=== PATIENT | female | born 2000 | race Caucasian/White ===

== ENCOUNTER 2023-07-25 20:23 | Outpatient (REF) | payer BC, SELFPAY ==
[2023-07-30 09:10] LABS: Age Gdln ACOG Testing Note (.); Pap IG (Image Guided) Note (.)
== END 2023-07-25 20:24 | disposition home or self-care (01) ==
LOC: LAB 20:23
PROVIDERS: PCP Family Medicine; Visit Provider Nurse Practitioner
DX: Z01.419 Encounter for gynecological examination (general) (routine) without abnormal findings (principal); Z20.2 Contact with and (suspected) exposure to infections with a predominantly sexual mode of transmission
CPT/HCPCS: 87491; 87591; 88175

== ENCOUNTER 2023-12-26 00:41 | Emergency (ER) | payer SELFPAY ==
[2023-12-26 00:45] VITALS: BP 153/89; PULSE 109; TEMP 36.3; O2SAT 99; BMI 25.0
--- OUTSIDE RECORDS SUMMARY | 2023-12-26 01:01 | XMS_ITS | CCD ---
Author Organization [facility]form[facility] access hospital Partnership [facility] Care Team Providers Care Applied Exercise Physiologist Name Role Phone Unavailable Primary Care Provider UnavailEdwin Montgomery Admitting Unavaila Edwin Johnson Attending Unavaila rich NON STAFF Primary Care Unavailable Edwin Ponce Unavailable IZABELLA MICHEL Referring Unavailable SEEMA OLVERA Attending Unavailable IZABELLA MICHEL Primary Care Unavailable IZABELLA MICHEL Attending Unavailable IZABELLA MICHEL Attending Unavailable Allergies Allergy Classification Reported Allergen(s) Allergy Type Date of Onset Reaction(s) Facility (1 source) Penicillin Drug Allergy Unknown [facility] [employer] Other Medications Current Medications Medication Drug Class(es) Dates Sig (Normalized) Sig (Original) naproxen 500 mg oral tablet (1 source) Nonsteroidal Anti-inflammatory Drug Start: 08-20-2022 take 1 tablet by mouth every twelve hours Naproxen 500 MG 1 tablet with food or milk Orally every 12 hrs for 10 days Aug, Active Thumb Spica Thumb Spica (1 source) Start: 08-20-2022 Thumb Spica Thumb Spica Aug, Active Problems Problem Classification Problem Date Documented Date Episodic/Chronic Immunizations and screening for infectious disease (2 sources) Contact with and (suspected) exposure to infections with a predominantly sexual mode of transmission; Translations: [Contact with and (suspected) exposure to infections with a predominantly sexual mode of transmission] Onset: 07-23-2023 Episodic Nonspecific chest pain (1 source) Chest pain, unspecified; Translations: [Chest pain, unspecified] Onset: 08-12-2023 Episodic Other connective tissue disease (1 source) Pain in left hand Episodic Other non-traumatic joint disorders (1 source) Pain in unspecified wrist Episodic Other upper respiratory infections (1 source) Acute pharyngitis, unspecified; Translations: [Acute pharyngitis, unspecified] Onset: 08-12-2023 Episodic Sprains and strains (1 source) Unspecified sprain of left wrist, initial encounter Episodic Unclassified (1 source) Pain in left hand; Translations: [Pain in left hand] Onset: 08-20-2022 Results Test Name Value Interpretation Reference Range Facility Basic Metabolic Profon 08-11 Anion gap [Moles/Vol] 11 mmol/L Normal - [facility] Comment on above: Performed By: #### T ROPI, BMP, DIME, CDP #### [facility] [address] [place] [address] [employer] Operator: Jeffrey Long MD BUN/CRE Ratio 15 Normal 9- [facility] Comment on above: Performed By: #### T ARIA, BMP, DIME, CDP #### [facility] [address] [place], [place] [id number] [employer]: Jeffrey Long MD Calcium [Mass/Vol] 9.0 mg/dL Normal 8.6-10.4 [facility] Comment on above: Performed By: #### T ARIA, BMP, DIME, CDP #### [facility] [address] [place], [place] [id number] [employer] Operator: Jeffrey Long MD Chloride [Moles/Vol] 99 mmol/L Normal 98-107 [facility] Comment on above: Performed By: #### T ROPNiki, BMP, DIME, CDP #### [facility] [address] [place], [place] [id number] [employer] Operator: Jeffrey Long MD CO2 [Moles/Vol] 25 mmol/L Normal 20-31 [facility] Comment on above: Performed By: #### T ROPI, BMP, DIME, CDP #### [facility] [address] [place] [address] [employer] Operator: Jeffrey Long MD Creatinine [Mass/Vol] 0.6 mg/dL Normal 0.5-0.9 [facility] Comment on above: Performed By: #### T GO KNAPP DIME, CDP #### [facility] [address] [place] [address] [employer] Operator: Jeffrey Long MD GFR/1.73 sq M.predicted among non-blacks MDRD (S/P/Bld) [Vol rate/Area] mL/min/{1.73_m2} Normal >60 [facility] Comment on above: Result Comment: These results are not intended for use in patients <18 years of age. eGFR results are calculated without a race factor using the 2020 CKD-EPI equation. Careful clinical correlation is recommended, particularly when comparing to results calculated using previous equations. The CKD-EPI equation is less accurate in patients with extremes of muscle mass, extra-renal metabolism of creatine, excessive creatine ingestion, or following therapy that affects renal tubular secretion. Performed By: #### T GO KNAPP DIME, CDP #### [facility] [address] [place] [address] [employer]: Jeffrey Long MD Glucose [Mass/Vol] 101 mg/dL High 70-99 [facility] Comment on above: Performed By: #### T GO KNAPP DIME, CDP #### [address] [place] [address] [employer]: Jeffrey Long MD Potassium [Moles/Vol] 3.6 mmol/L Low 3.7-5.3 [facility] Comment on above: Performed By: #### T GO KNAPP DIME, CDP #### [facility] [address] [place] [address] [employer] Operator: Jeffrey Long MD Sodium [Moles/Vol] 135 mmol/L Normal 135-144 [facility] Comment on above: Performed By: #### T GO KNAPP DIME, CDP #### [facility] [address] [place], [place] [address] [employer] Operator: Jeffrey Long MD Urea nitrogen [Mass/Vol] 9 mg/dL Normal 6-20 [facility] Comment on above: Performed By: #### T ARIA, GO, DIME, CDP #### [address] [place] [address] [employer]: Jeffrey Long MD CBC with Diffon 08-12-2023 Abs. Basophil 0.03 k/uL Normal 0.00-0.20 [facility] Comment on above: Performed By: #### T ROPNiki, BMP, DIME, CDP #### [address] [place] [address] [employer]: Jeffrey Long MD Abs.Imm.Granulocyte <0.03 Normal 0.00-0.30 [facility] Comment on above: Performed By: #### T ARIA, BMP, DIME, CDP #### [address] [place], [place] [address] [employer] Operator: Jeffrey Long MD Abs.Neutrophil (Seg) 3.25 k/uL Normal 1.80-8.00 [facility] Comment on above: Performed By: #### T ARIA, BMP, DIME, CDP #### [address] [place] [address] [employer]: Jeffrey Long MD Basophils/100 WBC (Bld) 0 % Normal 0-2 [facility] Comment on above: Performed By: #### T ARIA, BMP, DIME, CDP #### [address] [place], [place] [address] [employer] Operator: Jeffrey Long MD Eosinophils (Bld) [#/Vol] 0.10 10*3/uL Normal 0.00-0.44 [facility] Comment on above: Performed By: #### T ROPI, BMP, DIME, CDP #### [address] [place], [place] [id number] [employer]: Jeffrey Long MD Eosinophils/100 WBC (Bld) 2 % Normal 1-4 [facility] Comment on above: Performed By: #### T ROPNiki, BMP, DIME, CDP #### [address] [place], [facility]83 [employer]: Jeffrey Long MD Erythrocyte distribution width (RBC) [Ratio] 12.8 % Normal 11.8-14.4 [facility] Comment on above: Performed By: #### T ARIA, BMP, DIME, CDP #### [address] [place] [id number] [employer] Operator: Jeffrey Long MD Hematocrit (Bld) [Volume fraction] 40.5 % Normal 36.3-47.1 [facility] Comment on above: Performed By: #### T ARIA, BMP, DIME, CDP #### [address] [place], [facility]83 [employer]: Jeffrey Long MD Hemoglobin (Bld) [Mass/Vol] 13.6 g/dL Normal 11.9-15.1 [facility] Comment on above: Performed By: #### T ARIA, BMP, DIME, CDP #### [address] [place], [place] [address] [employer] Operator: Jeffrey Long MD Immature granulocytes/100 WBC (Bld) 0 % Normal 0 [facility] Comment on above: Performed By: #### T ARIA, BMP, DIME, CDP #### [address] [place] [id number] [employer] Operator: Jeffrey Long MD Lymphocytes (Bld) [#/Vol] 2.66 10*3/uL Normal 1.20-5.20 [facility] Comment on above: Performed By: #### T ROPI, BMP, DIME, CDP #### [facility] [address] [place] [address] [employer]: Jeffrey Long MD Lymphocytes/100 WBC (Bld) 40 % Normal 25-45 [facility] Comment on above: Performed By: #### T GO KNAPP, DIME, CDP #### [facility] [address] [place], [place] [id number] [employer] Operator: Jeffrey Long MD MCH (RBC) [Entitic mass] 30.3 pg Normal 25.2-33.5 [facility] Comment on above: Performed By: #### T GO KNAPP, DIME, CDP #### [facility] [address] [place], [place] [id number] [employer] Operator: Jeffrey Long MD MCHC (RBC) [Mass/Vol] 33.6 g/dL Normal 28.4-34.8 [facility] Comment on above: Performed By: #### T GO KNAPP, DIME, CDP #### [facility] [address] [place], [place] [address] [employer] Operator: Jeffrey Long MD MCV (RBC) [Entitic vol] 90.2 fL Normal 82.6-102.9 [facility] Comment on above: Performed By: #### T GO KNAPP, DIME, CDP #### [address] [place], [place] [address] [employer] Operator: Jeffery Long MD Monocytes (Bld) [#/Vol] 0.69 10*3/uL Normal 0.10-1.40 [facility] Comment on above: Performed By: #### T GO KNAPP, DIME, CDP #### [facility] [address] [place], [place] [address] [employer]: Jeffrey Long MD Monocytes/100 WBC (Bld) 10 % High 2-8 [facility] Comment on above: Performed By: #### T GO KNAPP, DIME, CDP #### [facility] [address] [place], [place] [address] [employer] Operator: Jeffrey Long MD Neutrophil (Seg) 48 % Normal 34-64 [facility] Comment on above: Performed By: #### T ROPI, BMP, DIME, CDP #### [facility] [address] [place], [place] [address] [employer]: Jeffrey Long MD NRBC Automated 0.0 per 100 WBC Normal 0.0 [facility] Comment on above: Performed By: #### T ROPNiki, BMP, DIME, CDP #### [facility] [address] [place], [place] [address] [employer] Operator: Jeffrey Long MD Platelet mean volume (Bld) [Entitic vol] 9.2 fL Normal 8.1-13.5 [facility] Comment on above: Performed By: #### T ROPNiki, BMP, DIME, CDP #### [address] [place], [place] [address] [employer] Operator: Jeffrey Long MD Platelets (Bld) [#/Vol] 330 10*3/uL Normal 138-453 [facility] Comment on above: Performed By: #### T ARIA, BMP, DIME, CDP #### [address] [place], [facility]83 [employer]: Jeffrey Long MD RBC (Bld) [#/Vol] 4.49 10*6/uL Normal 3.95-5.11 [facility] Comment on above: Performed By: #### T ARIA, BMP, DIME, CDP #### [facility] [address] [place], [place] [address] [employer] Operator: Jeffrey Long MD WBC (Bld) [#/Vol] 6.7 10*3/uL Normal 4.5-13.5 [facility] Comment on above: Performed By: #### T GO KNAPP DIME, CDP #### [facility] [address] [place] [address] [employer] Operator: Jeffrey Long MD D-Dimer Teston 08-12-2023 D-Dimer Test 0.54 ug/mL FEU Normal 0.00-0.59 [facility] Comment on above: Result Comment: When combined with a low clinical probability, a D dimer value of <0.50 ug/mL FEU is considered negative for DVT and PE (negative predictive value of 98%, sensitivity of 97%). If this test is not being used to help rule out DVT and PE, then the following reference range should be utilized: 0.00 - 0.59 ug/mL FEU. The D-Dimer assay is intended for use as an aid in the diagnosis of venous thromboembolism (DVT and PE) and the results should be interpreted in conjunction with the patient's medical history, clinical presentation, and other findings. Elevated levels of D-dimer activity can be seen in any state of coagulation activation and is not recommended in patients with therapeutic dose anticoagulant therapy for >24 hours, fibrinolytic therapy within the previous 7 days, trauma or surgery within the previous 4 weeks, disseminated malignancies, aortic aneurysm, sepsis, severe infections, pneumonia, severe skin infections, liver cirrhosis, advanced age, coronary disease, diabetes, and . A very low percentage of patients with DVT may yield D-dimer results below the cutoff of 0.5 ug/mL FEU. This is known to be more prevalent in patients with distal DVT. Performed By: #### T GO KNAPP DIME, CDP #### [facility] [address] [place] [address] [employer] Operator: Jeffrey Long MD HCG Screen, Bloodon 08-12-19 HCG Screen, Blood Negative Normal NEG [facility] Comment on above: Result Comment: Spec imens with hCG levels near the threshold of the test (25 mIU/mL) may give a negative or indeterminate result. In such cases, another test should be performed with a new specimen in 48-72 hours. If early is suspected clinically in this setting, correlation with quantitative serum b-hCG level is suggested. [facility] has confirmed the use of plasma for this test. This has not been cleared or approved by the U.S. Food and Drug Administration. The FDA has determined that such clearance is not necessary. Performed By: #### H CG #### [facility] [address] [place] [address] [employer] Operator: Jeffrey Long MD Troponinon 08-12-2023 Troponin, High Sens <6 Normal 0-14 [facility] Comment on above: Result Comment: High Sensitivity Troponin values cannot be compared with other Troponin methodologies. Performed By: #### T ROPI, BMP, DIME, CDP #### [facility] [address] [place] [address] [employer] Operator: Jeffrey Long MD XR CHEST (2 VW)on 08-12-2023 XR CHEST (2 VW) EXAMINATION: TWO XRAY VIEWS OF THE CHEST 08/12/2023 5:10 am COMPARISON: None. HISTORY: ORDERING SYSTEM PROVIDED HISTORY: shortness of breath, and R sided chest pain TECHNOLOGIST PROVIDED HISTORY: shortness of breath, and R sided chest pain FINDINGS: The cardiomediastinal silhouette is normal in size. The lungs are clear. No pleural effusion or pneumothorax is present. IMPRESSION: No acute cardiopulmonary process. Interpreted by: Jeffrey Wren MD Signed by: Jeffrey Wren MD 08/12/23 Final result Normal [facility] Chlamydia/GC DNA, Uron 07-23 Chlamydia Probe, Ur Negative Normal NEG [facility] Comment on above: Result Comment: CHLA MYDIA TRACHOMATIS DNA not detected by nucleic acid amplification. This test is intended for medical purposes only and is not valid for the evaluation of suspected sexual abuse or for other forensic purposes. In certain contexts, culture may be required to meet applicable laws and regulations for diagnosis of C. trachomatis and N. gonorrhoeae infections. Per 2014 CDC recommendations, this test does not include confirmation of positive results by an alternative nucleic acid target. Performed By: #### T REP, PHEP, UCGP, HIVCMB #### [place] [address] [place] [address] [employer] Operator: Jomar Barbour MD Gonorrhea Probe, Ur Negative Normal NEG [facility] Comment on above: Result Comment: NEIS SERIA GONORRHOEAE DNA not detected by nucleic acid amplification. This test is intended for medical purposes only and is not valid for the evaluation of suspected sexual abuse or for other forensic purposes. In certain contexts, culture may be required to meet applicable laws and regulations for diagnosis of C. trachomatis and N. gonorrhoeae infections. Per 2014 CDC recommendations, this test does not include confirmation of positive results by an alternative nucleic acid target. Performed By: #### T REP, PHEP, UCGP, HIVCMB #### [facility] [address] [place] [address] [employer] Operator: Jomar Barbour MD HIV Ag/Abon 07-23-2023 HIV Ag/Ab Non-Reactive Normal [facility] Comment on above: Result Comment: No l aboratory evidence of HIV infection. If acute HIV infection is suspected, consider testing for HIV-1 RNA. Performed By: #### T REP, PHEP, UCGP, HIVCMB #### [facility] [address] [place] [address] [employer] Operator: Jomar Barbour MD Hepatitis Acute [facility] 07-22 Hep A Ab,IgM Non-Reactive Normal [facility] Comment on above: Performed By: #### T REP, PHEP, UCGP, HIVCMB #### [facility] [address] [place] [address] [employer] Operator: Jomar Barbour MD Hep B Core Ab,IgM Non-Reactive Normal [facility] Comment on above: Performed By: #### T REP, PHEP, UCGP, HIVCMB #### [facility] [address] [place] [address] [employer] Operator: Jomar Barbour MD Hep B Surf Ag Non-Reactive Normal [facility] Comment on above: Performed By: #### T REP, PHEP, UCGP, HIVCMB #### [facility] [address] [place] [id number] [employer] Operator: Jomar Barbour MD Hep C Ab Non-Reactive Normal NR [facility] Comment on above: Result Comment: The hepatitis C procedure used in our laboratory is a Chemiluminescent test specific for three recombinant HCV antigens. A negative anti-HCV result indicates that the antibodies to hepatitis C virus are not present at this time. Individuals with reactive anti-HCV should be considered infected and infectious until proven otherwise. Confirmation of all equivocal or reactive results is recommended by ordering HCV RNA by PCR. Performed By: #### T REP, PHEP, UCGP, HIVCMB #### [email or web address] [address] [place], [place] [id number] [employer] Operator: Jomar Barbour MD T.pallidum Ab Screenon 07-22 T.pallidum Ab Screen Non-Reactive Normal NR [facility] Comment on above: Result Comment: T. pallidum antibodies are not detected. There is no serological evidence of infection with T. pallidum (early primary syphilis cannot be excluded). Retest in 2-4 weeks if syphilis is clinically suspect. Performed By: #### T REP, PHEP, UCGP, HIVCMB #### [email or web address] [address] [place], [place] [address] [employer] Operator: Jomar Barbour MD XR hand LT min 3V*on 023 XR hand LT min 3V* [facility] Other XR wrist LT min 3V*on 2022 XR wrist LT min 3V* [facility] Main [place] [address] [place] [address] XRay Report Signed Patient: EMEKA MOCTEZUMA MR#: [id number] : 2000 Acct:[id number] Age/Sex: 21 / F ADM Date: 08/20/22 Loc: [id number] Room: Type: [facility] Attending Dr: Edwin ROSE Copies to: Edwin SAMANOP-C Ordering Provider: Edwin LYNN-Jessi Date of Service: 08/20/22 XR/XR hand LT min 3V*: [id number] ([id number]) XR/XR wrist LT min 3V*: M25.539 CLINICAL DATA: Patient was jumping on trampoline yesterday has pain at the left hand and wrist. LEFT HAND - 3 views COMPARISON: None AP, lateral and oblique views were obtained. There is no evidence of fracture or dislocation. There are no significant soft tissue abnormalities. XR/XR hand LT min 3V* IMPRESSION: NO ACUTE BONY INJURY. LEFT WRIST - 4 views COMPARISON: None AP, lateral, ulnar deviation and oblique views were obtained. There is no evidence of fracture or dislocation. There are no significant soft tissue abnormalities. IMPRESSION: NO ACUTE BONY INJURY. Impression dictated by: Hortencia Pendleton M.D.08/20/2022 12:49 PM Dictation Location: [place] [address] Transcribed By: [facility] 08/20/22 1249 Dictated By: Hortencia Pendleton MD 08/20/22 1245 Signed By: 08/20/22 1249 Normal [facility] XR wrist LT min 3V* [facility] [employer] Other XR wrist LT min 3V* [facility] Main [facility] [employer] Other XR wrist LT min 3V* [address] [place] [address] [employer] Other XR wrist LT min 3V* [place] [address] [facility] Other XR wrist LT min 3V* XRay Report [facility] [employer] Other XR wrist LT min 3V* Signed [facility] Other XR wrist LT min 3V* Patient: KATY MOCTEZUMA MR#: [id number] [facility] Other XR wrist LT min 3V* : 2000 Acct:[id number] [facility] Other XR wrist LT min 3V* Age/Sex: 21 / F ADM Date: 08/20/22 [facility] Other XR wrist LT min 3V* Loc: [id number] Room: Type: [facility] Other XR wrist LT min 3V* Attending Dr: Edwin Ponce -C [facility] Other XR wrist LT min 3V* Copies to: Edwin Mccollum [facility] Other XR wrist LT min 3V* Ordering Provider: Edwin Mccollum [place] [facility] Other XR wrist LT min 3V* Date of Service: 08/20/22 [facility] Other XR wrist LT min 3V* XR/XR hand LT min 3V*: M79.642 [facility] Other XR wrist LT min 3V* ([id number]) XR/XR wrist LT min 3V*: M25.539 [facility] Other XR wrist LT min 3V* CLINICAL DATA: [place] nt was jumping on trampoline yesterday has pain at the left hand and wrist. [facility] Other XR wrist LT min 3V* LEFT HAND - 3 views [facility] Other XR wrist LT min 3V* COMPARISON: None [facility] Other XR wrist LT min 3V* AP, lateral and oblique views were obtained. There is no evidence of fracture or dislocation. [facility] Other XR wrist LT min 3V* There are no significant soft tissue abnormalities. [facility] Other XR wrist LT min 3V* XR/XR hand LT min 3V* [facility] Other XR wrist LT min 3V* IMPRESSION: [facility] [employer] Other XR wrist LT min 3V* NO ACUTE BONY INJURY. [facility] Other XR wrist LT min 3V* LEFT WRIST - 4 views [facility] Other XR wrist LT min 3V* AP, lateral, ulnar deviation and oblique views were obtained. There is no evidence of fracture or [facility] Other XR wrist LT min 3V* dislocation. There a re no significant soft tissue abnormalities. [facility] Other XR wrist LT min 3V* Impression dictated by: Hortencia Pendleton M.D.08/20/2022 12:49 PM [facility] Other XR wrist LT min 3V* Dictation Location: [place] [address] [facility] Other XR wrist LT min 3V* Transcribed By: EMBER 08/20/22 1249 [facility] Other XR wrist LT min 3V* Dictated By: Hortencia Pendleton MD 08/20/22 1245 [facility] Other XR wrist LT min 3V* Signed By: [facility] Other XR wrist LT min 3V* 08/20/22 1249 No rt [employer] Other CBC with Auto Differentialon 03-19-2022 Absolute Eos # 0.38 [facility] Absolute Immature Granulocyte [facility] Absolute Lymph # 2.16 [facility] Absolute Latimer # 0.70 [facility] Basophils (Bld) [#/Vol] 0.03 10*3/uL [facility] Basophils/100 WBC (Bld) 1 % 0 - 2 % [facility] Eosinophils/100 WBC (Bld) 6 % High 1 - 4 % [facility] Hematocrit (Bld) [Volume fraction] 39.0 % 36.3 - 47.1 % [facility] Hemoglobin (Bld) [Mass/Vol] 12.5 g/dL 11.9 - 15.1 g/dL [facility] Immature granulocytes/100 WBC (Bld) 0 % 0 [facility] Interpretation and review of laboratory results Abnormal [facility] Lymphocytes/100 WBC (Bld) 35 % 25 - 45 % [facility] MCH (RBC) [Entitic mass] 29.4 pg 25.2 - 33.5 pg [facility] MCHC (RBC) [Mass/Vol] 32.1 g/dL 28.4 - 34.8 g/dL [facility] MCV (RBC) [Entitic vol] 91.8 fL 82.6 - 102.9 fL [facility] Monocytes/100 WBC (Bld) 11 % High 2 - 8 % [facility] NRBC Automated 0.0 0.0 per 100 WBC [facility] Platelet distribution width (Bld) [Ratio] 12.4 % 11.8 - 14.4 % [facility] Platelet mean volume (Bld) [Entitic vol] 8.6 fL 8.1 - 13.5 fL [facility] Platelets (Bld) [#/Vol] 285 10*3/uL [facility] RBC (Bld) [#/Vol] 4.25 10*6/uL 3.95 - 5.1 1 m/uL [facility] Segmented neutrophils/100 WBC (Bld) 47 % 34 - 64 % [facility] Segs Absolute 2.91 [facility] WBC (Bld) [#/Vol] 6.2 10*3/uL [facility] Comprehensive Metabolic Pane onel 03-19-2022 Albumin [Mass/Vol] 4.1 g/dL 3.5 - 5.2 g/dL [facility] Albumin/Globulin [Mass ratio] 1.4 {ratio} 1.0 - 2.5 [facility] ALP (Bld) [Catalytic activity/Vol] 55 U/L 35 - 104 U/L [facility] ALT [Catalytic activity/Vol] 17 U/L 5 - 33 U/L [facility] Anion gap [Moles/Vol] 10 mmol/L 9 - 17 mmol/L [facility] AST [Catalytic activity/Vol] 17 U/L NINF - 32 U/L [facility] Bilirubin [Mass/Vol] 0.3 mg/dL 0.3 - 1.2 mg/dL [facility] Calcium [Mass/Vol] 9.6 mg/dL 8.6 - 10. 4 mg/dL [facility] Chloride [Moles/Vol] 102 mmol/L 98 - 107 mmol/L [facility] CO2 [Moles/Vol] 27 mmol/L 20 - 31 mmol/L [facility] Creatinine [Mass/Vol] 0.63 mg/dL 0.50 - 0.90 mg/dL [facility] GFR/1.73 sq M.predicted MDRD (S/P/Bld) [Vol rate/Area] - PINF [facility] Comment on above: These results are not intended for use in patients <18 years of age. eGFR results are calculated without a race factor using the 2020 CKD-EPI equation. Careful clinical correlation is recommended, particularly when comparing to results calculated using previous equations. The CKD-EPI equation is less accurate in patients with extremes of muscle mass, extra-renal metabolism of creatine, excessive creatine ingestion, or following therapy that affects renal tubular secretion. Glucose [Mass/Vol] 97 mg/dL 70 - 99 mg/dL [facility] Potassium [Moles/Vol] 4.1 mmol/L 3.7 - 5.3 mmol/L [facility] Protein [Mass/Vol] 7.0 g/dL 6.4 - 8.3 g/dL [facility] Sodium [Moles/Vol] 139 mmol/L 135 - 144 mmol/L [facility] Urea nitrogen (BldV) [Mass/Vol] 10 mg/dL 6 - 20 mg/dL [facility] Urea nitrogen/Creatinine (Bld) [Mass ratio] 16 9 - 20 [facility] HCG Qualitative, Serumon hCG Qual Negative NEGATIVE [facility] Comment on above: Specimens with hCG l evels near the threshold of the test (25 mIU/mL) may give a negative or indeterminate result. In such cases, another test should be performed with a new specimen in 48-72 hours. If early is suspected clinically in this setting, correlation with quantitative serum b-hCG level is suggested. [email or web address] has confirmed the use of plasma for this test. This has not been cleared or approved by the U.S. Food and Drug Administration. The FDA has determined that such clearance is not necessary. [facility] [email or web address] No Panel Informationon 03-19 [facility] [employer] T4, Freeon 03-19-2022 Thyroxine, Free 1.42 ng/dL 0.93 - 1.70 ng/dL [facility] TSHon 03-19-2022 TSH Qn 2.21 m[IU]/L [facility] [email or web address] Vital Signs Date Time Vital Sign Value Performing Clinician Kin litquna 08-20-2022 11:25-0400 Body weight 68.95 kg Edwin Ponce Other [facility] Other 08-20-2022 11:25-0400 Respiratory rate 20 /min Edwin Ponce Other [facility] Other 08-20-2022 11:25-0400 SaO2% (BldA) [Mass fraction] 98 % Edwin Ponce Other [facility] Other Encounters Encounter Date Encounter Type Care Provider Facility Start: 09-04-2023 End: 09-04-2023 ambulatory IZABELLA MICHEL Not Available Start: 08-12-2023 End: 08-12-2023 Emergency department patient visit SEEMA OLVERA [facility] Start: 07-25-2023 End: 07-25-2023 ambulatory IZABELLA MICHEL Not Available Start: 07-23-2023 End: 07-23-2023 ambulatory [facility] MICHEL [facility] Start: 08-20-2022 End: 08-20-2022 ambulatory Edwin Ponce Facility:[facility] Start: 08-20-2022 Office outpatient vi sit 25 minutes Edwin Ponce [facility] Start: 03-19-2022 End: 03-19-2022 Subsequent hospital visit by physician BRIAN Laboratory Procedures Date Procedure Procedure Detail Performing Clinician Start: 03-19-2022 Comprehensive metabo lic panel Izabella Michel Work Phone: Plan of Treatment Date Care Activity Detail Author Start: 04-04-2026 DTaP/Tdap/Td vaccine (5 - Td or Tdap) DTaP/Tdap/Td vaccine (5 - Td or Tdap) [facility] Start: 11-17-2022 Screening for Chlamy swathi trachomatis Chlamydia/GC screen [facility] Start: 02-08-2021 COVID-19 Vaccine (2 - Pfizer series) COVID-19 Vaccine (2 - Pfizer series) [facility] Start: 2020 Hepatitis C screening Hepatitis C sc reen [facility] Start: 2017 HIV screening HIV screen [employer] Start: 2014 Depression Screen Depression Screen [facility] Payers Date Payer Category Payer Unknown [id number] 2022 Self-pay 2022 Unknown [id number] 2002 Unknown [id number] [id number] [id number] 2002 Unknown [id number] 2.16.8 [id number] 2002 Unknown [id number] 2.16.84 [id number] 2002 Unknown [id number] 2.16.84 [id number] Unknown [id number] 2.16.8 [id number] Social History Date Type Detail Facility Tobacco smoking status VTIS Tobacco smoking consumption unknown [facility] [facility] Phone: Start: 2002 Sex Assigned At Not on file B ON [facility] Phone: Sex Assigned At Sex Assigned At Bir th [facility] Other Evaluation note 08-20-2022 Note Date & Type Note Facility 08-20-2022 Evaluation note Encounter Date Diagnosis Assessment Notes Aug, Wrist pain (ICD-10 - M25.539) Aug, Sprain of left wrist, initial encounter (ICD-10 - S63.502A) Rest, ice the wrist 15 minutes every hour for the next 24 hours. Keep in splint for 1 week. Follow up with pcp if symptoms do not improve in 7 days. I personally reviewed and interpreuted all of the xray imaging. There are no appreciable fractures. Given history, exam, and imaging findings, diagnosis most consistent with L. wrist sprain. Will order thumb spica splint and will place her on a course of naproxen. Given return precautions. Aug, Hand pain, left (ICD-10 - M79.642) [employer] Other Summary Purpose Family History No Family History Records FoundNo Family History Records FoundNo Family History Records Found Advance Directives No Advanced Directives Records FoundNo Advanced Directives Records FoundNo Advanced Directives Records Found Additional Source Comments INFORMATION SOURCE (unrecogn ized section and content) DATE CREATED AUTHOR 08/30/2022 [facility] DATE CREATED AUTHOR AUTHOR'S ORGANIZ ATION [facility] DATE CRE[facility] AUTHOR AUTHOR'S ORGANIZ ATION 09/08/2023 [facility] EPIC REASON FOR VISIT (unrecogniz ed section and content) POSS LEFT WRIST INJURY FOR RECORDS PERTAINING TO PATIENTS WHO ARE OR HAVE BEEN ENROLLED IN A CHEMICAL DEPENDENCY/SUBSTANCEABUSE PROGRAM, SOME INFORMATION MAY BE OMITTED. This clinical summary was aggregated from multiple sources. Caution should be exercised in using it in the provision of clinical care. This summary normalizes information from multiple sources, and as a consequence, information in this document may materially change the coding, format and clinical context of patient data. In addition, data may be omitted in some cases. CLINICAL DECISIONS SHOULD BE BASED ON THE PRIMARY CLINICAL RECORDS. [employer] provides no warranty or guarantee of the accuracy or completeness of information in this document.
--- NOTE | 2023-12-26 01:03 | CT_ITS ---
[address] [address] Patient Name: EMEKA MOCTEZUMA MRN: [id number] date: 2000 Sex: F Assigned Patient Location: ED.MAIN Current Patient Location: ED.MAIN Accession/Order Number: [id number] Exam Date: 12/26/2023 01:16 Report Date: 12/26/2023 01:29 At the request of: SUBHASH HORTON Procedure: CT head/brain wo con EXAM: CT head/brain wo con INDICATION: 23 years old; Female. Closed head trauma. Headache. Dizziness. Vomiting. TECHNIQUE: CT Head (ax/cor/sag reformats). Ionizing radiation dose reduced via iterative reconstruction/FBP blend and body size kV/mA adjustment. Comparison: None FINDINGS: POSTOPERATIVE CHANGES: None. BRAIN PARENCHYMA: No intraparenchymal or extra-axial hemorrhage. No mass effect. No midline shift or herniation. Normal andrade/white differentiation. VENTRICLES/EXTRA-AXIAL SPACES: Normal for patient's age. SINUSES/MASTOIDS: Sinuses are clear although the maxillary sinuses are not completely included. Mastoids and middle ears are clear. MSK: No displaced or depressed calvarial fracture. OTHER: No hyperdense intraluminal thrombus. CT/CT head/brain wo con IMPRESSION: 1. No acute intracranial abnormality. No hemorrhage or mass effect. This study cannot exclude the presence of a concussion type injury. Electronically authenticated by: NORRIS GRUBBS Date: 12/26/2023 01:29
--- NOTE | 2023-12-26 01:04 | ED_ITS ---
HPI HPI - General Adult General Chief complaint: Nausea/Vomiting/Diarrhea Stated complaint: HEAD INJURY Time Seen by Provider: 12/26/23 00:58 Source: patient Mode of arrival: walk-in Limitations: no limitations History of Present Illness HPI narrative: Patient presented to the emergency department for evaluation of head injury. Patient states approximately 24 hours ago she was at work, stood up quickly, hit the top back of her head on a metal part. States that she immediately felt lightheaded, saw stars. States approximately 20 minutes later she started throwing up. She threw up once. States that she has been very lightheaded, feeling off since that time. Patient states a little while later she threw up a second time. No other complaints at this time Related Data Home Medications ?Medication ?Instructions ?Recorded ?Confirmed albuterol (refill) 90 90 mcg inhalation PRN wheezing 12/26/23 mcg/actuation aerosol inhaler norgestimate 0.25 mg-ethinyl 1 tab PO DAILY 12/26/23 12/26/23 estradiol 35 mcg tablet (Sprintec (28)) Allergies Allergy/AdvReac Type Severity Reaction Status Date / Time Penicillins Allergy Unknown Unknown Verified 12/26/23 00:50 Opioid HPI Opioid Management Most Recent Opioid Data: Last Pain Scale 6 12/26/23 00:59 12/26/23 Last ED Pain Assessment 12/26/23 00:59 Review of Systems ROS Narrative Negative unless otherwise stated in the HPI PFSH PFSH Social History Little interest or pleasure in doing things: not at all Feeling down, depressed, or hopeless: not at all Exam Narrative Exam Narrative: General: NAD, AAOx3, no distress HEENT: NCAT, mmm, no tenderness was elicited to the head or neck Neck: Supple, no LAD, negative Kernig/Brudzinski, non meningeal, no bruit Respiratory: respiratory effort normal, speaks in full sentences, no tripod position, no accessory muscle use. Lungs clear to auscultation without rhonchi, wheezes, rales Cardiac: Regular rate and rhythm, no edema, regular s1/s2, no m/g/r Neuro: Speech is clear and appropriate. Normal level of consciousness. Gait and coordination are normal. 5/5 strength in all extremities. Constitutional Vital Signs, click to edit/add: Last Vital Signs Temp 97.4 F L 12/26/23 00:45 Pulse 109 H 12/26/23 00:45 Resp 16 12/26/23 00:45 BP 153/89 H 12/26/23 00:45 Pulse Ox 99 12/26/23 00:45 O2 Del Method Room Air 12/26/23 00:45 Course Vital Signs Vital signs: Vital Signs Temperature 97.4 F L 12/26/23 00:45 Pulse Rate 109 H 12/26/23 00:45 Respiratory Rate 16 12/26/23 00:45 Blood Pressure 153/89 H 12/26/23 00:45 Pulse Oximetry 99 12/26/23 00:45 Oxygen Delivery Method Room Air 12/26/23 00:45 Temperature 97.4 F L 12/26/23 00:45 Pulse Rate 109 H 12/26/23 00:45 Respiratory Rate 16 12/26/23 00:45 Blood Pressure 153/89 H 12/26/23 00:45 Pulse Oximetry 99 12/26/23 00:45 Oxygen Delivery Method Room Air 12/26/23 00:45 Medical Decision Making MDM Narrative Medical decision making narrative: [facility] Patient with history as above presented with head injury. History obtained from patient. Patient was nontoxic, stable. Ambulatory. Exam as above. Independently reviewed imaging. Reviewed external records. Differential diagnosis considered. Overall presentation is consistent with c losed head injury Advanced guidance has been given. Vss, pex is benign at this time. Pt to fu with pcp 1-2 days for reeval, rter should sx worsen, persist or become worrysome in any way. All incidental laboratory studies, EKG, radiologic findings have been noted and discussed with patient. Patient was reevaluated with a benign exam at this time. Pt expressed understanding and agreement with plan of care at this time. Will fu as planned. Pt stable for discharge. Medical Records Medical records reviewed: Yes I reviewed the patient's medical records Discharge Plan Discharge Chief Complaint: Nausea/Vomiting/Diarrhea Clinical Impression: Head injury, Concussion Patient Disposition: Home, Self-Care Time of Disposition Decision: 02:02 Condition: Good Prescriptions / Home Meds: No Action norgestimate-ethinyl estradiol [Sprintec (28)] 0.25-35 mg-mcg tablet 1 tab PO DAILY albuterol (refill) 90 mcg/actuation aerosol 90 mcg inhalation PRN (Reason: wheezing) Print Language: Ecuadorean Instructions: Concussion (ED), Head Injury (DC) Additional Instructions: Follow-up with your PCP in the next 1 to 2 days. Return to the emergency department should symptoms worsen or become worrisome in any way. Referrals: Raghu Whitehead MD [Primary Care Provider] - 1 week
[2023-12-26 02:20] VITALS: BP 135/87; PULSE 84; O2SAT 99
== END 2023-12-26 02:20 | disposition home or self-care (01) ==
PROVIDERS: Emergency Provider Emergency Medicine; PCP Family Medicine
DX: S06.0X0A Concussion without loss of consciousness, initial encounter (principal); W22.8XXA Striking against or struck by other objects, initial encounter
CPT/HCPCS: 70450; 99284